=== PATIENT | male | born 1990 | race Caucasian/White ===

== ENCOUNTER 2018-08-14 13:37 | Inpatient (IN) | payer BC ==
[~2018-08-14] VITALS: Ht 170.2 cm; Wt 102.3 kg
[~2018-08-14 13:37] MED LIST: ESCI10TA PO; IBUP-1984 PO; LORA0.5T PO; METO25TA6 PO
[2018-08-14] MEDS ORDERED: levetiracetam inj 1,500 MG in normal saline 100ml IV soln 85 ML IV ONE (14:45)
[2018-08-14] MEDS ORDERED: normal saline 1000ml 1,000 ML IV ONE ×2 (14:45→15:20)
[2018-08-14] MEDS ORDERED: levetiracetam inj 1,500 MG in normal saline 100ml IV soln 100 ML IV ONE (14:50)
[2018-08-14 14:54] LABS: BASOPHILS % (AUTO) 0.3 % (0-1); EOSINOPHILS % (AUTO) 0 % (0-6); HEMOGLOBIN 13.6 g/dl (14.0-17.9); LYMPHOCYTES # (AUTO) 1.9 X10'3 (1.1-4.8); LYMPHOCYTES % (AUTO) 15.3 % (21-51); MEAN CORPUSCULAR HEMOGLOBIN 28.1 PG (27.0-31.0); MEAN CORPUSCULAR HGB CONC 33.3 g/dL (33.0-36.5); MEAN CORPUSCULAR VOLUME 84.4 FL (78-98); MEAN PLATELET VOLUME 7.4 FL (7.4-10.4); MONOCYTES # (AUTO) 0.7 X10'3 (0-0.9); MONOCYTES % (AUTO) 5.2 % (2-12); NEUTROPHILS # (AUTO) 9.9 X10'3 (1.8-7.7); NEUTROPHILS % (AUTO) 79.2 % (42-75); PLATELET COUNT 336 X10'3 (140-440); RED BLOOD COUNT 4.86 X10'6 (4.70-6.10); RED CELL DISTRIBUTION WIDTH 14.7 % (11.5-14.5); WHITE BLOOD COUNT 12.5 X10'3 (4.5-11.0)
[2018-08-14 14:58] LABS: ALANINE AMINOTRANSFERASE 28 U/L (12-78); ALBUMIN 4.2 G/DL (3.4-5.0); ALBUMIN/GLOBULIN RATIO 1.1 (1.1-1.5); ALKALINE PHOSPHATASE 107 IU/L (46-116); ANION GAP 7 (8-16); ASPARTATE AMINO TRANSFERASE 35 U/L (10-37); BILIRUBIN,TOTAL 1.3 MG/DL (0.1-1.0); BLOOD UREA NITROGEN 12 MG/DL (7-18); BUN/CREATININE RATIO 13.8 (5.4-32.0); CALCIUM 9.2 MG/DL (8.5-10.1); CHLORIDE 102 MMOL/L (99-107); CREATININE 0.87 MG/DL (0.60-1.10); GLUCOSE 105 MG/DL (70-104); POTASSIUM 3.6 MMOL/L (3.5-5.1); SODIUM 137 MMOL/L (135-145); TOTAL CARBON DIOXIDE 27.6 MMOL/L (24-32); eGFR > 90 ML/MIN
[2018-08-14 15:08] LABS: ETHANOL < 0.010 GM/DL (0.0-0.010); PHOSPHORUS 2.7 MG/DL (2.3-4.5)
[2018-08-14 15:10] LABS: CREATINE KINASE 1390 U/L (39-308)
[2018-08-14] MEDS: normal saline 1000ml 1,000 ML IV SCH (15:33)
[2018-08-14] MEDS ORDERED: ondansetron/PF 4mg/2ml inj IV PRN (15:35)
[2018-08-14] MEDS ORDERED: acetaminophen 325mg tablet PO PRN ×2 (15:35)
[2018-08-14] MEDS ORDERED: magnesium 2GM in 50ml NS 50 ML IV PRN (15:35)
[2018-08-14] MEDS ORDERED: magnesium Cl slow-release 64mg tablet PO PRN (15:35)
[2018-08-14] MEDS ORDERED: potassium CL 10mEq/100ml bag 100 ML IV PRN (15:35)
[2018-08-14] MEDS ORDERED: potassium Cl 40MEQ/NS 500ml 500 ML IV PRN (15:35)
[2018-08-14] MEDS ORDERED: magnesium 4gm in 100ml NS 100 ML IV PRN (15:35)
[2018-08-14] MEDS ORDERED: mag hydrox/Alum hydrox/simeth 30ml oral suspension PO PRN (15:35)
[2018-08-14] MEDS ORDERED: potassium Cl 20 mEq SR tablet PO PRN ×2 (15:35)
[2018-08-14] MEDS ORDERED: magnesium hydroxide 30ml (MOM) UD suspension PO PRN (15:35)
[2018-08-14 16:05] LABS: URINE AMPHETAMINE SCREEN NEGATIVE (Neg); URINE BARBITUATE SCREEN NEGATIVE (Neg); URINE BENZODIAZEPINES SCREEN NEGATIVE (Neg); URINE CANNABINOID SCREEN NEGATIVE (Neg); URINE COCAINE SCREEN NEGATIVE (Neg); URINE METHADONE SCREEN NEGATIVE (Neg); URINE OPIATE SCREEN NEGATIVE (Neg); URINE PHENCYCLIDINE SCREEN NEGATIVE (Neg)
[2018-08-14 16:09] LABS: CLARITY,URINE CLEAR (Clear); COLOR,URINE YELLOW (Yellow); GLUCOSE, URINE NEGATIVE (Neg); KETONES,URINE TRACE mg/dl (Neg); LEUKOCYTE ESTERASE ,URINE NEGATIVE (Neg); NITRITES, URINE NEGATIVE (Neg); OCCULT BLOOD,URINE NEGATIVE (Neg); PROTEIN,URINE NEGATIVE (Neg); UROBILINOGEN,URINE 0.2 E.U/dL (0.2-1.0)
[2018-08-14] MEDS ORDERED: LEVO50TA8 PO (16:09)
[2018-08-14] MEDS ORDERED: BUPR2TAB11 SL (16:09)
[2018-08-14] MEDS ORDERED: LORA1TAB PO (16:09)
[2018-08-14 16:26] LABS: UA COLLECTION TYPE STRAIGHT CATH
[2018-08-14] MEDS ORDERED: LORazepam 1 MG tablet PO PRN (17:10)
[2018-08-14 17:26] VITALS: BP 128/82
--- NOTE | 2018-08-14 18:15 | NUR ---
Pt arrived to floor aprox 1700. VSS, NS @ 100mL/hour running. Pt sleeping, not responding to name, but appears to be able to hear, w/no s/s obvious distress at this time. Opened eyes once for a second. HRR, RR even/unregular, palpable pulse x4 extremities, BS active x4, LCTAB; MRSA swab/nares completed. Unable to gauge strength, r/t pt unresponsive condition. Skin warm/dry, no skin issues noted. pt does not respond verbally. Dr Franz ordered continuous pulse ox, BG, Tele monitor for pt. No Ativan, Suboxone until pt is awake. Seizure precautions in place/sz pads in place. Called pt mother, stated he became this way at 1645 08/13/18, got worse, brought to ER today. Mother will bring home medication (Suboxone) tomorrow. NOC nurse aware, also in conference w/Dr Nogueira.
--- NOTE | 2018-08-14 18:15 | NUR ---
Problems reprioritized. Patient report given, questions answered & plan of care reviewed with TOPHER Brenner.
[2018-08-14] MEDS ORDERED: levetiracetam inj 500 MG in normal saline 100ml IV soln 95 ML IV SCH (20:00)
[2018-08-14] MEDS ORDERED: levetiracetam 250mg tablet PO SCH (20:00)
[2018-08-14 22:00] VITALS: BP 121/72
[2018-08-15] MEDS: normal saline 1000ml 1,000 ML IV SCH ×2 (00:28→09:58)
[2018-08-15 05:54] LABS: BASOPHILS # (AUTO) 0.1 X10'3 (0-0.2); BASOPHILS % (AUTO) 0.6 % (0-1); EOSINOPHILS % (AUTO) 0.3 % (0-6); HEMATOCRIT 37.1 % (42.0-52.0); HEMOGLOBIN 12.2 g/dl (14.0-17.9); LYMPHOCYTES # (AUTO) 2.3 X10'3 (1.1-4.8); LYMPHOCYTES % (AUTO) 23.1 % (21-51); MEAN CORPUSCULAR HEMOGLOBIN 27.8 PG (27.0-31.0); MEAN CORPUSCULAR HGB CONC 32.8 g/dL (33.0-36.5); MEAN PLATELET VOLUME 7.3 FL (7.4-10.4); MONOCYTES # (AUTO) 0.6 X10'3 (0-0.9); MONOCYTES % (AUTO) 6.4 % (2-12); NEUTROPHILS # (AUTO) 6.8 X10'3 (1.8-7.7); NEUTROPHILS % (AUTO) 69.6 % (42-75); PLATELET COUNT 289 X10'3 (140-440); RED BLOOD COUNT 4.36 X10'6 (4.70-6.10); RED CELL DISTRIBUTION WIDTH 14.6 % (11.5-14.5); WHITE BLOOD COUNT 9.8 X10'3 (4.5-11.0)
[2018-08-15 06:00] VITALS: BP 123/83
[2018-08-15 06:17] LABS: ALBUMIN 3.5 G/DL (3.4-5.0); ANION GAP 10 (8-16); BLOOD UREA NITROGEN 13 MG/DL (7-18); BUN/CREATININE RATIO 16.3 (5.4-32.0); CALCIUM 8.2 MG/DL (8.5-10.1); CHLORIDE 105 MMOL/L (99-107); CREATINE KINASE 916 U/L (39-308); GLUCOSE 91 MG/DL (70-104); MAGNESIUM 2.1 MG/DL (1.5-2.4); POTASSIUM 3.9 MMOL/L (3.5-5.1); SODIUM 140 MMOL/L (135-145); TOTAL CARBON DIOXIDE 25.1 MMOL/L (24-32); eGFR > 90 ML/MIN
--- NOTE | 2018-08-15 06:50 | NUR ---
Patient in room ORTHO 4009. I have received report from Elidia OBANDO and had the opportunity to ask questions and assume patient care.
[2018-08-15] MEDS ORDERED: levoTHYROXINE 25mcg tablet PO SCH (07:00)
--- NOTE | 2018-08-15 07:45 | NUR ---
Call from fellow RN, tele had called, pt's HR was 39. Took vitals at 0750, HR 75 BP 115/71, called tele at 0800, HR was 64 but has dipped into the 50s. Will cont. to monitor.
[2018-08-15] MEDS: K and/or MAG REPLACEMENT MC SCH (08:00)
[2018-08-15] MEDS: BUPRENORPHINE 2 MG PO SCH (08:00)
[2018-08-15] MEDS: Levetiracetam-NS 500mg/100ml 100 ML IV SCH ×2 (09:05→20:47)
[2018-08-15] MEDS: enoxaparin 40mg/0.4ml syringe SQ SCH (09:56)
[2018-08-15 10:00] VITALS: BP 129/79
[2018-08-15] MEDS: levoTHYROXINE sod inj. 100mcg/5 ml vial IV SCH (11:42)
[2018-08-15] MEDS ORDERED: magnesium sulf injection 2 GM, MVI, adult No.4 with vit. K 10 ML in dextrose 5% water 5... IV SCH ×3 (12:30)
[2018-08-15] MEDS ORDERED: thiamine inj. 100 MG in normal saline 100ml IV soln 99 ML IV SCH (12:30)
[2018-08-15] MEDS: MAGNESIUM IV SCH (13:04)
[2018-08-15] MEDS: NORMAL SALINE IV SCH (13:04)
[2018-08-15] MEDS: THIAMINE IV SCH (13:04)
[2018-08-15] MEDS: MVI, adult No.4 with vit. K 10 ML in dextrose 5% water 500ml 490 ML IV SCH ×2 (14:39)
--- NOTE | 2018-08-15 15:32 | NUR ---
Chuck wolff; Chuck Comer skin intact. Addendum: 08/15/18 at [address] Amended: Links added.
--- NOTE | 2018-08-15 16:26 | NUR ---
PAGER ID: [phone] MESSAGE: Dr. Nogueira, Mr. Phan in [id number], has some urinary retention, 656 mLs w/scanner, are we able to have an order for a straight cath? Thank you, Thu on ortho #[phone]
[2018-08-15 18:00] VITALS: BP 134/86
--- NOTE | 2018-08-15 18:29 | NUR ---
Problems reprioritized. Patient report given, questions answered & plan of care reviewed with Vanessa OBANDO.
--- NOTE | 2018-08-15 18:47 | NUR ---
Patient in room ORTHO 4009. I have received report from Thu OBANDO and had the opportunity to ask questions and assume patient care.
--- NOTE | 2018-08-15 18:48 | NUR ---
New order for EEG. Paged tech
--- NOTE | 2018-08-15 21:40 | NUR ---
Bladder scanned patient for 623ml. Patient unable to void. Straight cath performed with 550ml of straw colored urine.
[2018-08-15 22:00] VITALS: BP 138/86
[2018-08-16] MEDS: normal saline 1000ml 1,000 ML IV SCH ×3 (00:11→17:33)
--- NOTE | 2018-08-16 04:05 | NUR ---
Bladder scanned patient at 819ml. Patient unable to void. Straight cath patient with 700ml light kirstie urine.
[2018-08-16 06:00] VITALS: BP 148/83
--- NOTE | 2018-08-16 06:30 | NUR ---
Patient in room ORTHO 4009. I have received report from Vanessa OBANDO and had the opportunity to ask questions and assume patient care.
--- NOTE | 2018-08-16 06:42 | NUR ---
Problems reprioritized. Patient report given, questions answered & plan of care reviewed with Thu OBANDO.
[2018-08-16 06:44] LABS: BASOPHILS % (AUTO) 0.3 % (0-1); EOSINOPHILS % (AUTO) 0.1 % (0-6); HEMATOCRIT 36.4 % (42.0-52.0); HEMOGLOBIN 12.2 g/dl (14.0-17.9); LYMPHOCYTES # (AUTO) 2.5 X10'3 (1.1-4.8); LYMPHOCYTES % (AUTO) 22.6 % (21-51); MEAN CORPUSCULAR HGB CONC 33.5 g/dL (33.0-36.5); MEAN CORPUSCULAR VOLUME 83.5 FL (78-98); MEAN PLATELET VOLUME 7.4 FL (7.4-10.4); MONOCYTES # (AUTO) 0.8 X10'3 (0-0.9); MONOCYTES % (AUTO) 7.1 % (2-12); NEUTROPHILS # (AUTO) 7.7 X10'3 (1.8-7.7); NEUTROPHILS % (AUTO) 69.9 % (42-75); PLATELET COUNT 283 X10'3 (140-440); RED BLOOD COUNT 4.36 X10'6 (4.70-6.10); RED CELL DISTRIBUTION WIDTH 14.4 % (11.5-14.5); WHITE BLOOD COUNT 11.1 X10'3 (4.5-11.0)
[2018-08-16 06:47] LABS: ALBUMIN 3.6 G/DL (3.4-5.0); ANION GAP 10 (8-16); BLOOD UREA NITROGEN 9 MG/DL (7-18); BUN/CREATININE RATIO 11.8 (5.4-32.0); CALCIUM 8.3 MG/DL (8.5-10.1); CHLORIDE 105 MMOL/L (99-107); CREATININE 0.76 MG/DL (0.60-1.10); GLUCOSE 88 MG/DL (70-104); MAGNESIUM 2.3 MG/DL (1.5-2.4); POTASSIUM 3.5 MMOL/L (3.5-5.1); SODIUM 139 MMOL/L (135-145); eGFR > 90 ML/MIN
[2018-08-16] MEDS: BUPRENORPHINE 2 MG PO SCH (08:00)
[2018-08-16] MEDS: K and/or MAG REPLACEMENT MC SCH (08:00)
[2018-08-16] MEDS: Levetiracetam-NS 500mg/100ml 100 ML IV SCH ×2 (08:46→21:53)
[2018-08-16] MEDS: enoxaparin 40mg/0.4ml syringe SQ SCH (08:47)
[2018-08-16] MEDS: levoTHYROXINE sod inj. 100mcg/5 ml vial IV SCH (08:47)
[2018-08-16 10:00] VITALS: BP 142/75
[2018-08-16] MEDS: THIAMINE IV SCH (11:53)
[2018-08-16] MEDS: MAGNESIUM IV SCH (11:53)
[2018-08-16] MEDS: NORMAL SALINE IV SCH (11:53)
[2018-08-16] MEDS: MVI, adult No.4 with vit. K 10 ML in dextrose 5% water 500ml 490 ML IV SCH ×2 (13:09)
--- NOTE | 2018-08-16 17:06 | NUR ---
Pt able to walk with pt approx 300 ft. Pt still only able to verbalize simple one or two words answers. Pt can be impulsive, getting out of bed on his own but redirected to allowing staff to assist. Pt then returned from the bathroom on his own and with some difficulty, crawled back into bed.
--- NOTE | 2018-08-16 18:22 | NUR ---
Problems reprioritized. Patient report given, questions answered & plan of care reviewed with Ingrid OBANDO.
--- NOTE | 2018-08-16 18:40 | NUR ---
RC'D VERBAL REPORT FROM JEREMIAH AND ASSUMED CARE OF PATIENT.
[2018-08-16 19:00] VITALS: BP 128/63
[2018-08-16] MEDS: valproate sod inj 500 MG in normal saline 100ml IV soln 95 ML IV SCH (21:06)
[2018-08-16 22:00] VITALS: BP 142/83
--- NOTE | 2018-08-16 23:36 | NUR ---
I spoke to Dr. Flannery about the note from Dr. Talamantes that he was going to change the seizure medicine based on the discussion with Dr. Krueger the neurologist. The orders were not placed by Dr. Talamantes and Dr. Flannery said he would pass it on to the day doctor in report.
--- NOTE | 2018-08-17 01:47 | NUR ---
SPOKE TO DR. RAUSCH EARLIER REGARDING LARGE URINARY OUTPUTS AND PATIENT'S INABILITY TO VOID AND BEING STR. CATHED Q4HRS. ORDER RC'D TO PLACE F/C UNTIL RETENTION HAS RESOLVED. PLACED F/C USING STERILE TECHNIQUE WITH APPROX. 600ML'S OUT IMMEDIATELY. URINE YELLOW AND CLEAR. TOLERATED WELL, STATLOCK TO UPPER R THIGH. NO C/O PAIN OR DISCOMFORT NOTED. TABS IN PLACE AND CALL LIGHT IN REACH. PATIENT ENC'D TO CALL FOR ANY NEEDS.
[2018-08-17] MEDS: normal saline 1000ml 1,000 ML IV SCH ×3 (03:33→18:24)
[2018-08-17 06:00] VITALS: BP 137/85
--- NOTE | 2018-08-17 06:03 | NUR ---
MEZA PLACED WITHOUT DIFFICULTY AND HAD 600ML OUT IMMEDIATELY. TOLERATED IT WELL AND SLEPT WELL LAST NIGHT AFTER PLACEMENT
[2018-08-17 06:07] LABS: BASOPHILS # (AUTO) 0.1 X10'3 (0-0.2); BASOPHILS % (AUTO) 0.7 % (0-1); EOSINOPHILS # (AUTO) 0.1 X10'3 (0-0.9); EOSINOPHILS % (AUTO) 0.6 % (0-6); HEMOGLOBIN 12.3 g/dl (14.0-17.9); LYMPHOCYTES # (AUTO) 2.3 X10'3 (1.1-4.8); LYMPHOCYTES % (AUTO) 23.5 % (21-51); MEAN CORPUSCULAR HEMOGLOBIN 28.3 PG (27.0-31.0); MEAN CORPUSCULAR HGB CONC 34.1 g/dL (33.0-36.5); MEAN CORPUSCULAR VOLUME 83.2 FL (78-98); MEAN PLATELET VOLUME 7.1 FL (7.4-10.4); MONOCYTES # (AUTO) 0.7 X10'3 (0-0.9); MONOCYTES % (AUTO) 7.1 % (2-12); NEUTROPHILS # (AUTO) 6.8 X10'3 (1.8-7.7); NEUTROPHILS % (AUTO) 68.1 % (42-75); PLATELET COUNT 296 X10'3 (140-440); RED BLOOD COUNT 4.33 X10'6 (4.70-6.10); RED CELL DISTRIBUTION WIDTH 14.3 % (11.5-14.5)
--- NOTE | 2018-08-17 06:15 | NUR ---
Patient in room ORTHO 4009. I have received report from Ingrid OBANDO and had the opportunity to ask questions and assume patient care.
[2018-08-17 06:37] LABS: ALBUMIN 3.3 G/DL (3.4-5.0); ANION GAP 9 (8-16); BLOOD UREA NITROGEN 8 MG/DL (7-18); CALCIUM 8.1 MG/DL (8.5-10.1); CHLORIDE 105 MMOL/L (99-107); CREATINE KINASE 541 U/L (39-308); GLUCOSE 99 MG/DL (70-104); MAGNESIUM 2.3 MG/DL (1.5-2.4); POTASSIUM 3.4 MMOL/L (3.5-5.1); SODIUM 141 MMOL/L (135-145); TOTAL CARBON DIOXIDE 27.5 MMOL/L (24-32); eGFR > 90 ML/MIN
[2018-08-17] MEDS: K and/or MAG REPLACEMENT MC SCH (08:00)
[2018-08-17] MEDS: BUPRENORPHINE 2 MG PO SCH (08:00)
[2018-08-17] MEDS: enoxaparin 40mg/0.4ml syringe SQ SCH (09:03)
[2018-08-17] MEDS: levoTHYROXINE sod inj. 100mcg/5 ml vial IV SCH (09:03)
[2018-08-17 10:00] VITALS: BP 141/95
[2018-08-17] MEDS: valproate sod inj 500 MG in normal saline 100ml IV soln 95 ML IV SCH ×2 (10:42→19:12)
[2018-08-17] MEDS: MVI, adult No.4 with vit. K 10 ML in dextrose 5% water 500ml 490 ML IV SCH ×2 (11:28)
[2018-08-17] MEDS: POTASSIUM BICARBONATE/CIT AC 20 MEQ TABLET.EFF PO PRN ×3 (13:03→23:11)
[2018-08-17 18:00] VITALS: BP 138/88
--- NOTE | 2018-08-17 18:15 | NUR ---
Patient in room ORTHO 4009C. I have received report from TOPHER Andino and had the opportunity to ask questions and assume patient care.
--- NOTE | 2018-08-17 18:21 | NUR ---
Problems reprioritized. Patient report given, questions answered & plan of care reviewed with Selin Dolan RN.
[2018-08-17 22:00] VITALS: BP 133/82
[2018-08-18] MEDS: normal saline 1000ml 1,000 ML IV SCH ×2 (04:33→15:25)
[2018-08-18 06:00] VITALS: BP 143/99
--- NOTE | 2018-08-18 06:00 | NUR ---
Patient in room ORTHO 4009. I have received report from and had the opportunity to ask questions and assume patient care TOPHER Smallwood.
[2018-08-18 06:19] LABS: ALBUMIN 3.5 G/DL (3.4-5.0); ANION GAP 9 (8-16); BLOOD UREA NITROGEN 10 MG/DL (7-18); BUN/CREATININE RATIO 10.1 (5.4-32.0); CALCIUM 8.8 MG/DL (8.5-10.1); CHLORIDE 106 MMOL/L (99-107); CREATININE 0.99 MG/DL (0.60-1.10); GLUCOSE 99 MG/DL (70-104); MAGNESIUM 2.3 MG/DL (1.5-2.4); POTASSIUM 3.6 MMOL/L (3.5-5.1); SODIUM 142 MMOL/L (135-145); TOTAL CARBON DIOXIDE 27.5 MMOL/L (24-32); eGFR > 90 ML/MIN
--- NOTE | 2018-08-18 06:36 | NUR ---
Problems reprioritized. Patient report given, questions answered & plan of care reviewed with TOPHER Sosa.
[2018-08-18 06:46] LABS: BASOPHILS % (AUTO) 0.5 % (0-1); EOSINOPHILS # (AUTO) 0.1 X10'3 (0-0.9); EOSINOPHILS % (AUTO) 1.4 % (0-6); HEMATOCRIT 40.1 % (42.0-52.0); HEMOGLOBIN 13.6 g/dl (14.0-17.9); LYMPHOCYTES # (AUTO) 2.3 X10'3 (1.1-4.8); LYMPHOCYTES % (AUTO) 25.3 % (21-51); MEAN CORPUSCULAR HEMOGLOBIN 28.4 PG (27.0-31.0); MEAN CORPUSCULAR HGB CONC 33.8 g/dL (33.0-36.5); MEAN PLATELET VOLUME 7.4 FL (7.4-10.4); MONOCYTES # (AUTO) 0.7 X10'3 (0-0.9); MONOCYTES % (AUTO) 7.6 % (2-12); NEUTROPHILS # (AUTO) 5.9 X10'3 (1.8-7.7); NEUTROPHILS % (AUTO) 65.2 % (42-75); PLATELET COUNT 302 X10'3 (140-440); RED BLOOD COUNT 4.77 X10'6 (4.70-6.10); RED CELL DISTRIBUTION WIDTH 14.7 % (11.5-14.5)
[2018-08-18] MEDS ORDERED: levoTHYROXINE 25mcg tablet PO SCH (07:00)
[2018-08-18] MEDS: K and/or MAG REPLACEMENT MC SCH (08:00)
[2018-08-18] MEDS: enoxaparin 40mg/0.4ml syringe SQ SCH (08:23)
[2018-08-18] MEDS: valproate sod inj 500 MG in normal saline 100ml IV soln 95 ML IV SCH (08:24)
[2018-08-18 10:00] VITALS: BP 149/90
[2018-08-18] MEDS ORDERED: DIVA500T2 PO (14:26)
--- NOTE | 2018-08-18 15:00 | NUR ---
FC DC'd per order/pt will be DCing home
[2018-08-18] MEDS: MVI, adult No.4 with vit. K 10 ML in dextrose 5% water 500ml 490 ML IV SCH ×2 (15:13)
[2018-08-18 18:00] VITALS: BP 129/91
--- NOTE | 2018-08-18 18:37 | NUR ---
Patient in room ORTHO 4009. I have received report from kori Sosa and had the opportunity to ask questions and assume patient care.
--- NOTE | 2018-08-18 19:17 | NUR ---
pt left on wheelchair accompanied by his parents. 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 iv out and tele is off. left by family car.
== END 2018-08-18 19:24 | disposition home health service (06) | DRG 101 ==
LOC: ER 13:38 → ORTHO 4S 16:02 → CMPBEDREQ 19:39
PROVIDERS: ADMIT Hospitalist; ATTEND Internal Medicine
PROC: 4A10X4Z Monitoring of Central Nervous Electrical Activity, External Approach (ICD-10-PCS; principal; 2018-08-16)
DX: G40.909 Epilepsy, unspecified, not intractable, without status epilepticus (principal); E87.2 Acidosis; M62.82 Rhabdomyolysis; D72.829 Elevated white blood cell count, unspecified; F31.9 Bipolar disorder, unspecified; F41.9 Anxiety disorder, unspecified; Z91.048 Other nonmedicinal substance allergy status; Z79.899 Other long term (current) drug therapy; Z79.890 Hormone replacement therapy; Z91.5 Personal history of self-harm; Z56.0 Unemployment, unspecified
CPT/HCPCS: 36415; 70450; 71045; 80048; 80053; 80305; 80320; 81003; 82140; 82550; 82948; 83605; 83735; 84100; 84443; 84484; 85025; 85610; 87070; 92508; 92616; 95816; 96374; 97110; 97116; 97162; 97530; 99285; G0378; J1650; J1953; J3411; J3475; J7030; J7060

== ENCOUNTER 2021-11-29 09:35 | Outpatient (CLI) | payer MEDICAID ==
[~2021-11-29 09:35] MED LIST changes: +BUPR2TAB11 SL; +DIVA500T2 PO; -ESCI10TA PO; -IBUP-1984 PO; +LEVO50TA8 PO; -LORA0.5T PO; +LORA1TAB PO; -METO25TA6 PO
== END 2021-11-29 23:59 | disposition home or self-care (01) ==
LOC: RAD 09:35
PROVIDERS: ATTEND Family Medicine
DX: R94.01 Abnormal electroencephalogram [EEG] (principal); R56.9 Unspecified convulsions; R40.1 Stupor; G43.909 Migraine, unspecified, not intractable, without status migrainosus; G25.9 Extrapyramidal and movement disorder, unspecified; G25.69 Other tics of organic origin; G47.9 Sleep disorder, unspecified; Z87.820 Personal history of traumatic brain injury
CPT/HCPCS: 95819

== ENCOUNTER 2022-04-22 01:21 | Emergency (ER) | payer MEDICAID ==
[~2022-04-22] VITALS: Ht 172.7 cm; Wt 84.1 kg
[2022-04-22 01:46] VITALS: BP 129/88
== END 2022-04-22 03:10 ==
LOC: ER 01:21
DX: S00.83XA Contusion of other part of head, initial encounter (principal); Z88.1 Allergy status to other antibiotic agents; Z88.8 Allergy status to other drugs, medicaments and biological substances; Z79.899 Other long term (current) drug therapy; X58.XXXA Exposure to other specified factors, initial encounter; Y93.89 Activity, other specified; Y92.89 Other specified places as the place of occurrence of the external cause; Y99.8 Other external cause status
CPT/HCPCS: 70450; 70486; 71045; 99283; 99284